=== PATIENT | female | born 1940 | race Caucasian/White ===

== ENCOUNTER 2020-09-01 06:38 | Day surgery (SDC) | payer OTHER ==
[2020-08-30 14:02] LABS: COVID AG,FIA SOURCE NASOPHARYNGEAL
[~2020-09-01] VITALS: Ht 152.4 cm; Wt 76.4 kg
[~2020-09-01 06:38] MED LIST: SODIUM CHLORIDE 0.9% 1,000 ML IV ONE; SODIUM CHLORIDE 0.9% 1,000 ML ONE
[2020-09-01] MEDS ORDERED: BENZOCAINE 20% 50 MCG/SPRAY 57 GM TP ONE (06:39)
[2020-09-01] MEDS ORDERED: LIDOCAINE 2% 30 ML JELLY TP ONE (06:39)
[2020-09-01] MEDS ORDERED: LIDOCAINE 4% 50 ML SOLUTION TP ONE (06:39)
[2020-09-01] MEDS ORDERED: ALBUTEROL SULFATE 2.5 MG/0.5 ML NEB SOLUTION NEB ONE (06:39)
[2020-09-01] MEDS ORDERED: MONT-35 PO (07:18)
[2020-09-01] MEDS ORDERED: DRON400T PO (07:18)
[2020-09-01] MEDS ORDERED: CHOL400T56 PO (07:18)
[2020-09-01] MEDS ORDERED: ATOR40TA28 PO (07:18)
[2020-09-01] MEDS ORDERED: FAMO20 PO (07:18)
[2020-09-01] MEDS ORDERED: LOSA25TA21 PO (07:18)
[2020-09-01] MEDS ORDERED: METO-558 PO (07:18)
[2020-09-01] MEDS ORDERED: CETI-450 PO (07:18)
[2020-09-01] MEDS ORDERED: BENZ200C53 PO (07:18)
[2020-09-01] MEDS ORDERED: APIX5TAB PO (07:18)
[2020-09-01] MEDS ORDERED: FLUT44HFA IH (07:18)
[2020-09-01 07:23] LABS: GLUCOMETER DEV NAME(LOC) SDS.; GLUCOSE,POINT OF CARE 88 MG/DL (70-110)
[2020-09-01] MEDS ORDERED: MIDAZOLAM HCL 2 MG/2 ML VIAL ONE (07:30)
[2020-09-01] MEDS ORDERED: FentaNYL CITRATE PF 100 MCG/2 ML VIAL ONE (07:30)
[2020-09-01] MEDS ORDERED: MethylPREDNISolone SOD SUCC 125 MG/2 ML VIAL IVP ONE (09:00)
[2020-09-01] MEDS ORDERED: MethylPREDNISolone SOD SUCC 125 MG/2 ML VIAL ONE (09:44)
[2020-09-01] MEDS ORDERED: OXYGEN THERAPY IH SCH (20:00)
== END 2020-09-01 10:50 | disposition home or self-care (01) ==
LOC: SURGERY 06:38
PROVIDERS: ATTEND Internal Medicine Critical Care Medicine
DX: J38.4 Edema of larynx (principal); B37.0 Candidal stomatitis; I10 Essential (primary) hypertension; E78.00 Pure hypercholesterolemia, unspecified; Z88.8 Allergy status to other drugs, medicaments and biological substances; Z20.822 Contact with and (suspected) exposure to COVID-19; Z72.89 Other problems related to lifestyle; Z98.890 Other specified postprocedural states
CPT/HCPCS: 31623; 31624; 71045; 82962; 87015; 87070; 87101; 87205; 87206; 87220; 87426; 88108; 88184; 88185; 88312; C9803; J2250; J2930; J3010; J7030; J7613; Z7610